=== PATIENT | female | born 1970 | race Caucasian/White ===

== ENCOUNTER 2017-12-21 11:30 | Emergency (ER) | payer OTHER ==
--- NOTE | 2017-12-21 11:58 | XR ---
EXAMINATION TYPE: XR hand complete LT DATE OF EXAM: 12/21/2017 CLINICAL HISTORY: Injury to the left fifth digit TECHNIQUE: Frontal, lateral and oblique images of the left hand are obtained. COMPARISON: None. FINDINGS: There is a comminuted fracture of the proximal metaphysis of the fifth digit with apex vola r and radial angulation and displacement of the distal fracture fragment medially (ulnar). There does not appear to be intra-articular extension as the fracture line at the radial aspect does not appear to abut the fifth metacarpal. No additional fractures are identified. Mild arthropathy of the left f irst carpometacarpal joint demonstrated as joint space narrowing and small osteophytes. The overlying soft tissue swelling of fifth digit. IMPRESSION: Comminuted, displaced, angulated fracture of the proximal metaphysis of the fifth digit o f the left hand with overlying soft tissue swelling.
[2017-12-21] MEDS ORDERED: LIDOCAINE 1% INJ 10MG/ML (20 ML MDV) SQ ONE (12:36)
--- NOTE | 2017-12-21 13:01 | ED ---
General Adult HPI - General Chief complaint: Extremity Injury, Upper Stated complaint: Hand Injury-[facility] Time Seen by Provider: 12/21/17 12:02 Source: patient, RN notes reviewed Mode of arrival: ambulatory Limitations: no limitations - History of Present Illness Initial comments: 47-year-old female presents to the emergency department for a chief complaint of finger injury as one hour ago. Patient was at work when she accidentally tripped over something and fell onto her left hand. Patient states her fifth digit is swelling and painful. Patient has not had anything for pain before coming to the ER. Patient denies any pain in the rest of the hand. Patient did not hit her head or sustain any other injuries. Patient has no other complaints at this time including shortness of breath, chest pain, abdominal pain, nausea or vomiting, headache, or visual changes. - Related Data Home Medications Medication Instructions Recorded Confirmed Canagliflozin [Invokana] 100 mg PO DAILY 12/21/17 12/21/17 Metoprolol Succinate (ER) [Toprol 100 mg PO DAILY 12/21/17 12/21/17 Xl] Previous Rx's Medication Instructions Recorded Ibuprofen [Motrin] 600 mg PO Q8HR PRN #20 tab 12/21/17 Allergies Allergy/AdvReac Type Severity Reaction Status Date / Time cephalexin [From Keflex] Allergy Unknown Verified 12/21/17 12:13 codeine Allergy Nausea & Verified 12/21/17 12:13 Vomiting hydrocodone [From Vicodin] Allergy Nausea & Verified 12/21/17 12:13 Vomiting propoxyphene Allergy Nausea & Verified 12/21/17 12:13 [From Darvocet-N] Vomiting Sulfa (Sulfonamide Allergy Rash/Hives Verified 12/21/17 12:13 Antibiotics) Review of Systems ROS Statement: Those systems with pertinent positive or pertinent negative responses have been documented in the HPI. ROS Other: All systems not noted in ROS Statement are negative. Past Medical History Past Medical History: Diabetes Mellitus, Hyperlipidemia, Hypertension, Myocardial Infarction ([place]) History of Any Multi-Drug Resistant Organisms: None Reported Past Surgical History: Section, Hernia Repair, Hysterectomy Past Psychological History: No Psychological Hx Reported Smoking Status: Never smoker Past Alcohol Use History: Occasional Past Drug Use History: None Reported General Exam Limitations: no limitations General appearance: alert, in no apparent distress Head exam: Present: atraumatic, normocephalic, normal inspection Eye exam: Present: normal appearance ENT exam: Present: normal exam, mucous membranes moist Neck exam: Present: normal inspection. Absent: tenderness, meningismus, lymphadenopathy Respiratory exam: Present: normal lung sounds bilaterally. Absent: respiratory distress, wheezes, rales, rhonchi, stridor Cardiovascular Exam: Present: regular rate, normal rhythm, normal heart sounds. Absent: systolic murmur, diastolic murmur, rubs, gallop, clicks Extremities exam: Present: tenderness (Tenderness to the proximal fifth digit. No tenderness in the rest of the hand or other digits. No tenderness to the scaphoid area or wrist.), normal capillary refill (Less than 2 seconds in the left upper extremity radial pulse 2+), joint swelling (Patient does have mild swelling in the proximal fifth digit. Patient also has swelling in the fourth digit and has 3 rings on the fourth digit.), other (Sensation intact in the left upper extremity including the fifth digit.). Absent: full ROM (Patient is unable to move fifth digit.) Course Vital Signs 12/21/17 11:38 Temperature 98.5 F Pulse Rate 89 Respiratory 18 Rate Blood Pressure 168/102 O2 Sat by Pulse 98 Oximetry Procedures - Procedures Initial comment: Neurovascular intact before splint application Indication: Fifth digit fracture. Type: Short arm ulnar gutter Wounds: no abrasions or lacerations underneath splint Neurovascular status: patient has sensation and movement of digits extending outside the splint, there is no cyanosis, capillary refill < 2 seconds Follow-up: patient given number for orthopedics and instructed to phone to make an appointment. Patient aware she can return to the Emergency Department if any difficulties. Medical Decision Making - Medical Decision Making 47-year-old female presents to the emergency department for a chief complaint of left finger injury times one hour ago. Patient tripped at work. On exam fifth digit appears to be displaced. Radial pulse 2+ capillary refill less than 2 seconds. Patient is not able to move the fifth digit. X-ray demonstrates a comminuted, displaced, angulated fracture of the proximal metaphysis of the fifth digit of the left hand with overlying soft tissue swelling. Digital block was performed on the fifth digit. 1 ml 1% lidocaine was inserted on each side of the finger after alcohol was used to clean the skin. Reduction was attempted. Capillary refill was less than 2 seconds after reduction attempted. Neurovascular intact after reduction. Repeat x-ray shows a reduction of the comminuted proximal metaphyseal proximal phalanx left fifth digit fracture. No new osseous abnormality. The fracture has been reduced. Patient was splinted in an ulnar gutter splint. She is to take Motrin and Tylenol for pain and was educated to rest ice and elevate the hand. She will return to the emergency Department if she has any worsening symptoms. Otherwise she will follow-up with primary care in 1-2 days. Disposition Clinical Impression: Fracture of finger of left hand Disposition: HOME SELF-CARE Condition: Good Instructions: Finger Fracture (ED) Additional Instructions: Please take Motrin and Tylenol for pain. Please rest, ice, and elevate the left hand. Please follow-up with orthopedics in one to 2 days. Return to the emergency department if any worsening symptoms or other concerns. Prescriptions: Ibuprofen [Motrin] 600 mg PO Q8HR PRN #20 tab PRN Reason: Pain Is patient prescribed a controlled substance at d/c from ED?: No Referrals: Nonstaff,Physician [Primary Care Provider] - 1-2 days Jackson Mar DO [Doctor of Osteopathic Medicine] - 1-2 days Time of Disposition: 14:04
--- NOTE | 2017-12-21 13:53 | XR ---
EXAMINATION TYPE: XR hand complete LT DATE OF EXAM: 12/21/2017 COMPARISON: NONE HISTORY: Pain fifth digit TECHNIQUE: 3 views left hand FINDINGS: There is a comminuted transverse fracture of the proximal metaphysis proximal phalanx left fifth digit. Mild soft tissue swelling is over the fracture site. The fracture has been reduced. Joint spaces are preserved. No additional fractures are evident. IMPRESSION: 1. Reduction of the comminuted proximal metaphyseal proximal phalanx left fifth digit fracture. 2. No new osseous abnormality.
[2017-12-21 14:15] VITALS: BP 157/82; PULSE 82; RESP 17; TEMP 98.7
== END 2017-12-21 14:14 | disposition home or self-care (01) ==
LOC: EC 11:30
DX: S62.617A Displaced fracture of proximal phalanx of left little finger, initial encounter for closed fracture (principal); E11.9 Type 2 diabetes mellitus without complications; I10 Essential (primary) hypertension; I25.2 Old myocardial infarction; Z79.84 Long term (current) use of oral hypoglycemic drugs; Z79.899 Other long term (current) drug therapy; Z88.2 Allergy status to sulfonamides; Z88.5 Allergy status to narcotic agent; Z88.1 Allergy status to other antibiotic agents; W01.0XXA Fall on same level from slipping, tripping and stumbling without subsequent striking against object, initial encounter; Y99.0 Civilian activity done for income or pay
CPT/HCPCS: 73130; 99283; 26725; J2001

== ENCOUNTER → 2018-03-30 | Outpatient (CLI) | payer OTHER ==
--- NOTE | 2018-03-30 23:12 | MR ---
EXAMINATION TYPE: MR wrist LT wo con DATE OF EXAM: 03/30/2018 COMPARISON: Outside left hand x-ray March 08, 2018. HISTORY: Lt wrist pain since fall injury December 2017 Standard multiplanar, multisequence MRI departmental protocol Multiplanar, multisequence images of the left wrist were acquired. FINDINGS: Exam noted suboptimal as patient is unable to completely extend wrist for proper for ideal imaging. The scapholunate ligament is felt intact seen best coronal image 12. Lunotriquetral ligament is less well seen but felt intact as there is no suspicious widening identified. The triangular fibrocartilage complex is felt to be within normal limits seen best coronal image 12. Proximal and distal carpal rows show no significant edema. Minimal spurring is present. Distal ulna a nd radius are felt to be within normal limits. Lunate capitate relationship is preserved on sagittal images. Flexor and extensor tendons show no suspicious abnormality. No concerning fluid collection is seen. IMPRESSION: No suspicious edema or tear identified.
== END ==
LOC: RADMRIMAIN 18:24
PROVIDERS: ATTEND Orthopaedic Surgery
DX: M25.532 Pain in left wrist (principal)

== ENCOUNTER 2019-02-09 16:21 | Emergency (ER) | payer OTHER ==
[2019-02-09 16:31] VITALS: BP 147/92; PULSE 91; RESP 18; TEMP 97.8
[2019-02-09] MEDS ORDERED: KETOROLAC 30 MG/ML 1 ML VIAL IM STA (17:45)
[2019-02-09] MEDS ORDERED: LIDOCAINE 5% PATCH TOPICAL STA (17:46)
--- NOTE | 2019-02-09 18:53 | ED ---
Back Pain HPI - General Chief Complaint: Back Pain/Injury Stated Complaint: back injury-[facility] Time Seen by Provider: 02/09/19 16:33 Source: patient Limitations: no limitations - History of Present Illness Initial Comments: Patient is a 48-year-old female presenting to emergency Department with a chief complaint of low back pain. Patient reports she was at work when she developed the sudden onset of pain in the lumbosacral region that does not radiate anywhere. Patient reports incident occurred 2 hours ago. Patient reports she was sent to the ED from a work. Patient reports intermittent chronic low back pain. Patient is required to do a urine drug screen for work-related purposes patient reports the pain is located in the right lumbosacral region and is exacerbated with flexion and alleviated when laying supine. Patient denies any saddle paresthesias, urinary or bladder incontinence. No red flags. - Related Data Home Medications Medication Instructions Recorded Confirmed Canagliflozin [Invokana] 100 mg PO DAILY 12/21/17 12/21/17 Metoprolol Succinate (ER) [Toprol 100 mg PO DAILY 12/21/17 12/21/17 Xl] Previous Rx's Medication Instructions Recorded Ibuprofen [Motrin] 600 mg PO Q8HR PRN #20 tab 12/21/17 Cyclobenzaprine [Flexeril] 5 mg PO HS #20 tab 02/09/19 Allergies Allergy/AdvReac Type Severity Reaction Status Date / Time cephalexin [From Keflex] Allergy Unknown Verified 02/09/19 16:28 codeine Allergy Nausea & Verified 02/09/19 16:28 Vomiting hydrocodone [From Vicodin] Allergy Nausea & Verified 02/09/19 16:28 Vomiting propoxyphene Allergy Nausea & Verified 02/09/19 16:28 [From Darvocet-N] Vomiting Sulfa (Sulfonamide Allergy Rash/Hives Verified 02/09/19 16:28 Antibiotics) Review of Systems ROS Statement: Those systems with pertinent positive or pertinent negative responses have been documented in the HPI. ROS Other: All systems not noted in ROS Statement are negative. Past Medical History Past Medical History: Diabetes Mellitus, Hyperlipidemia, Hypertension, Myocardial Infarction ([place]) History of Any Multi-Drug Resistant Organisms: None Reported Past Surgical History: Section, Hernia Repair, Hysterectomy Past Psychological History: No Psychological Hx Reported Smoking Status: Never smoker Past Alcohol Use History: Occasional Past Drug Use History: None Reported General Exam Limitations: no limitations General appearance: alert, in no apparent distress Head exam: Present: atraumatic, normocephalic, normal inspection Eye exam: Present: normal appearance, PERRL, EOMI Pupils: Present: normal accommodation ENT exam: Present: normal exam, mucous membranes moist, normal external ear exam Neck exam: Present: normal inspection, full ROM Respiratory exam: Present: normal lung sounds bilaterally Cardiovascular Exam: Present: regular rate, normal rhythm, normal heart sounds Extremities exam: Present: normal inspection, full ROM, normal capillary refill, other (+2 dorsalis pedis and posterior tibialis bilaterally. Patient neurovascularly intact.) Back exam: Present: normal inspection, tenderness (Right lumbosacral region tenderness), paraspinal tenderness (Right). Absent: full ROM (Limited range of motion with flexion.), CVA tenderness (R), CVA tenderness (L), muscle spasm Neurological exam: Present: alert, oriented X3 Psychiatric exam: Present: normal affect, normal mood Skin exam: Present: warm, intact, normal color Course Vital Signs 02/09/19 16:28 Temperature 97.8 F Pulse Rate 91 Respiratory 18 Rate Blood Pressure 147/92 O2 Sat by Pulse 96 Oximetry Medical Decision Making - Medical Decision Making patient is a 48 year old female presenting to emergency Department with a chief complaint of low back pain. Patient was given a Lidoderm patch and a Toradol shot. On reevaluation patient reports that she feels much better and is able to ambulate without much difficulty. Patient advised to follow-up with orthopedics for further management. I suspect the patient to have sudden onset of acute low back pain which is typically benign considering she has intermittent chronic back pain. Strict return parameters were thoroughly discussed the patient was understanding and agreeable. Case discussed with physician. Disposition Clinical Impression: Mechanical back pain Disposition: HOME SELF-CARE Condition: Stable Instructions (If sedation given, give patient instructions): Acute Low Back Pain (ED) Additional Instructions: Please follow with orthopedics. Please take prescribed medication as directed. Do not drive or operative machinery when taking medication. Please return to emergency department is symptoms worsen. Prescriptions: Cyclobenzaprine [Flexeril] 5 mg PO HS #20 tab Is patient prescribed a controlled substance at d/c from ED?: No Referrals: Cruz Hyman MD [Primary Care Provider] - 1-2 days Delfin Sosa DO [Medical Doctor] - 1-2 days Time of Disposition: 18:53
== END 2019-02-09 19:14 | disposition home or self-care (01) ==
LOC: EC 16:21
DX: M54.5 Low back pain (principal); E11.9 Type 2 diabetes mellitus without complications; I10 Essential (primary) hypertension; I25.2 Old myocardial infarction; Z79.84 Long term (current) use of oral hypoglycemic drugs; Z79.899 Other long term (current) drug therapy; Z88.1 Allergy status to other antibiotic agents; Z88.5 Allergy status to narcotic agent; Z88.2 Allergy status to sulfonamides
CPT/HCPCS: 99283; 96372; J1885

== ENCOUNTER → 2019-03-05 | Outpatient (CLI) | payer OTHER ==
--- NOTE | 2019-03-05 07:39 | XR ---
EXAMINATION TYPE: XR lumbar spine 2 or 3V DATE OF EXAM: 03/05/2019 CLINICAL HISTORY: Back pain since February 09 TECHNIQUE: Frontal and lateral images of the lumbar spine are obtained. COMPARISON: None FINDINGS: There are 5 lumbar type vertebral bodies identified. The lumbar spine shows satisfactory alignment without evidence of acute fracture or dislocation. Vertebral body heights are preserved. Mi ld facet arthropathy and small anterior osteophytes of the lower lumbar spine. There is slight dextro scoliosis may be positional. The oblique images appear within normal limits. The overlying soft ti ssue appears unremarkable. IMPRESSION: No acute fracture or malalignment is seen in the lumbar spine. Mild degenerative disc di sease.
== END | disposition home or self-care (01) ==
LOC: RADXRMAIN 07:08
PROVIDERS: ATTEND Emergency Medicine
DX: M51.36 Other intervertebral disc degeneration, lumbar region (principal)
CPT/HCPCS: 72100